=== PATIENT | female | born 1985 | race Caucasian/White ===

== ENCOUNTER 2019-03-15 08:01 | Emergency (ER) | payer MEDICAID, OTHER ==
[~2019-03-15] VITALS: Ht 172.7 cm; Wt 86.0 kg
[2019-03-15 08:28] VITALS: BP 123/79
[2019-03-15] MEDS ORDERED: LIDOcaine 1% W/epiNEPHrine 1:200,000 10ml vial IJ ONE (08:40)
[2019-03-15] MEDS ORDERED: SULF1TAB49 PO (09:07)
== END 2019-03-15 09:45 | disposition home or self-care (01) ==
LOC: ER 08:03
DX: H60.02 Abscess of left external ear (principal); J45.909 Unspecified asthma, uncomplicated; Z88.1 Allergy status to other antibiotic agents
CPT/HCPCS: 10060; 99283

== ENCOUNTER 2024-12-21 18:07 | Emergency (ER) | payer SELFPAY ==
[~2024-12-21] VITALS: Ht 175.3 cm; Wt 99.0 kg
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
[2024-12-21] MEDS ORDERED: CYCL-1 PO (18:58)
[2024-12-21] MEDS ORDERED: NAPR-56 PO (18:58)
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
--- NOTE | 2024-12-21 19:44 | RADIOLOGY REPORT ---
EXAM: CT CT CERVICAL SPINE INDICATION: trauma EXAM DATE: 12/21/2024 07:17 PM COMPARISON: CT CT HEAD on DOS: 12/21/24, CT CT THORACIC SPINE on DOS: 12/21/24 TECHNIQUE: Multiple axial CT images of the cervical spine were obtained using bone algorithm. Axial and coronal reformatting was done. Bone and soft tissue windows were reviewed. Radiation Dose Information: CT Dose: CTDI volume is 24 mGy. Dose-length product is 535 mGy*cm FINDINGS: The cervical alignment is intact. No acute cervical spine fracture is identified. The vertebral body heights are intact. No suspicious osseous lesions are identified. No significant degenerative changes are identified. There is no prevertebral soft tissue swelling. IMPRESSION: 1. No evidence of acute cervical spine fracture or traumatic malalignment. 2. All CT scans at this medical facility are performed using dose modulation techniques as appropriate to a performed exam including the following: Automated exposure control was utilized; adjustment of the MA and/or KV according to patient size; and use of iterative reconstruction technique.
--- NOTE | 2024-12-21 20:03 | RADIOLOGY REPORT ---
EXAM: CT CT THORACIC SPINE INDICATION: trauma COMPARISON: None TECHNIQUE: Multiple axial CT images of the thoracic spine were obtained using bone algorithm. Axial and coronal reformatting was done. Bone and soft tissue windows were reviewed. Radiation Dose Information: CT Dose: CTDI volume is 26 mGy. Dose-length product is 894 mGy*cm FINDINGS: No CT evidence of acute fracture or traumatic mal-alignment. The visualized paraspinal soft tissues are grossly unremarkable. The disc spaces are relatively preserved. There is multilevel degenerative change of the spine, with disc space narrowing, subchondral sclerosis, and marginal osteophyte formation. IMPRESSION: 1. No CT evidence of acute fracture or traumatic mal-alignment of the bony thoracic spine. 2. Radiation optimization: All CT scans at this facility use at least one of these dose optimization techniques: automated exposure control mA and/or kV adjustment per patient size (includes targeted exams where dose is matched to clinical indication) or iterative reconstruction.
[2024-12-21 20:21] VITALS: BP 120/64; PULSE 80; RESP 18; TEMP 98.6; O2SAT 99
== END 2024-12-21 20:22 | disposition home or self-care (01) ==
LOC: ER 18:07
DX: M79.18 Myalgia, other site (principal); M54.2 Cervicalgia; M54.9 Dorsalgia, unspecified; R51.9 Headache, unspecified; J45.909 Unspecified asthma, uncomplicated; F10.129 Alcohol abuse with intoxication, unspecified; V43.52XA Car driver injured in collision with other type car in traffic accident, initial encounter; Y93.89 Activity, other specified; Y92.410 Unspecified street and highway as the place of occurrence of the external cause; Y99.8 Other external cause status; Y90.9 Presence of alcohol in blood, level not specified
CPT/HCPCS: 70450; 72125; 72128; 99284; L0172